=== PATIENT | female | born 2000 | race Two or more races ===

== ENCOUNTER 2025-02-17 19:42 | Observation (INO) | payer MEDICAID, SELFPAY ==
[2025-02-17] VITALS (13 sets, daily range): BP systolic 110–116; BP diastolic 58–76; PULSE 73–90; RESP 18–99; TEMP 36.8; O2SAT 92–100; BMI 39.9
[2025-02-17] MEDS: RINGERS LACTATED 1000 ML 1,000 ML 999 ML IV (19:30)
[2025-02-17 20:13] LABS: Basophils # (Auto) 0.1 Thou/mm3 (0.0-0.2); Basophils % (Auto) 0 % (0-2.5); Eosinophils # (Auto) 0.1 Thou/mm3 (0.0-0.5); Eosinophils % (Auto) 1 % (0-10); Hematocrit 39.1 % (36.0-46.0); Hemoglobin 13.3 g/dL (12.0-16.0); Immature Granulocytes Auto 0.15 Thou/mm3 (0.00-0.00); Lymphocytes # (Auto) 2.0 Thou/mm3 (1.0-4.8); Lymphocytes % (Auto) 16 % (10-50); Mean Corpuscular HGB Conc 34.0 g/dl (31.0-37.0); Mean Corpuscular Hemoglobin 31.0 pg (25.0-35.0); Mean Corpuscular Volume 91 fL (80-100); Monocytes # (Auto) 0.8 Thou/mm3 (0.0-0.8); Monocytes % (Auto) 7 % (0-12); Neutrophils # (Auto) 9.1 Thou/mm3 (1.8-7.7); Neutrophils % (Auto) 75 % (37-80); Nucleated Red Blood Cell # 0.00 Thou/mm3 (0.00-0.00); Nucleated Red Blood Cell % 0 /100 WBC (0); Platelet Count 248 Thou/mm3 (140-440); RDW Standard Deviation 44.3 fL (36.4-46.3); Red Blood Count 4.29 Miln/mm3 (4.00-5.20); White Blood Count 12.2 Thou/mm3 (3.6-11.0)
[2025-02-17] MEDS: RINGERS LACTATED 1000 ML 1,000 ML 125 ML IV (20:30)
[2025-02-17 20:36] LABS: Alanine Aminotransferase 17 U/L (10-49); Albumin, Serum 4.1 gm/dL (3.5-5.0); Albumin/Globulin Ratio 1.6 (1.2-2.2); Alkaline Phosphatase 87 U/L (46-116); Anion Gap 9 (7-16); Aspartate Amino Transferase 30 U/L (0-34); BUN/Creatinine Ratio 12 Ratio (12-20); Bilirubin,Total 0.3 mg/dL (0.3-1.2); Blood Urea Nitrogen 6 mg/dL (9-23); Calcium 10.0 mg/dL (8.3-10.6); Calcium (Corrected) 10.0 mg/dL (8.5-10.1); Carbon Dioxide 25.7 mMol/L (20.0-31.0); Chloride 104 mMol/L (98-107); Creatinine (Component) 0.5 mg/dL (0.6-1.3); Estimated Creatinine Clearance 209.3 mL/min (>60); Globulin 2.6 gm/dL (2.3-3.5); Glucose 82 mg/dL (74-106); Osmolality,Calculated 274 (275-295); Potassium 4.7 mMol/L (3.4-5.1); Sodium 139 mMol/L (136-145); Total Protein 6.7 gm/dL (5.7-8.2); eGFR > 60 See Note
== END 2025-02-17 20:57 | disposition home or self-care (01) ==
PROVIDERS: Admitting Provider Obstetrics & Gynecology; Visit Provider Obstetrics & Gynecology
DX: O26.893 Other specified pregnancy related conditions, third trimester (principal); Z3A.29 29 weeks gestation of pregnancy; R42 Dizziness and giddiness
CPT/HCPCS: 36415; 59025; 59899; 80053; 85025; J7120

== ENCOUNTER 2025-03-12 14:04 | Observation (INO) | payer MEDICAID, SELFPAY ==
[2025-03-12] VITALS (25 sets, daily range): BP systolic 119–130; BP diastolic 71–79; PULSE 83–129; RESP 18–97; TEMP 36.7; O2SAT 95–99; BMI 40.4
--- NOTE | 2025-03-12 14:36 | XR_ITS ---
Examination: age Limited TECHNIQUE: Limited transabdominal sonographic images pelvis Date and time: March 12, 2025, 1510 hours INDICATIONS: Labor evaluation today, dizziness FINDINGS: Cardiac motion 141 BPM Amniotic fluid index 16.8 cm IMPRESSION: Amniotic fluid index 16.8 cm
--- NOTE | 2025-03-12 14:36 | XR_ITS ---
Examination: OB Transvaginal ultrasound of the pelvis, Limited Technique: Transvaginal sonographic images pelvis performed using spencer scale imaging Exam date and time: March 12, 2025, 1512 hours INDICATIONS: Labor evaluation with dizziness today. FINDINGS: Cervix 3.1 cm closed IMPRESSION: Cervix 3.1 cm closed.
[2025-03-12 15:35] LABS: Collection Type, Urine Clean Catch
[2025-03-12 15:47] LABS: Bilirubin,Urine Negative (Negative); Blood,Urine Negative (Negative); Clarity,Urine Clear (Clear/Hazy); Color,Urine Yellow (Lt Yel-Yel); Glucose, Urine Negative (Negative); Ketones,Urine Negative (Negative); Leukocyte Esterase,Urine Negative (Negative); Nitrite,Urine Negative (Negative); PH,Urine 6.0 (5.0-7.0); Protein,Urine Trace (Neg - Trace); RBC,Urine 2 /hpf (0-3); Specific Gravity,Urine 1.028 (1.001-1.035); Squamous Epithelial Cell,Urine 4 /hpf (0-5); Urobilinogen,Urine Negative mg/dL (0.0-1.0); WBC,Urine 2 /hpf (0-5)
[2025-03-12 16:46] LABS: COVID-19 Antigen (In-House) Positive (Negative)
--- NOTE | 2025-03-12 17:20 | PD.LDPN ---
Documentation for date of: 03/12/25 OB Labor Progress Note Pelvic Exam Amniotic membrane status: Intact Contractions Monitor mode: External Contraction frequency: none Status status: Category l Assessment and Plan Comments: Triage Note Sil is a 24yo with SIUP at 32+wk presenting to L&D for a few different complaints. She notes an episode of dizziness this afternoon that resolved before she arrived. She has had runny nose for a few days- no cough or sore throat. No fevers/chills. She also noticed a change in discharge, was a bit more liquidy a few days ago but more mucous-like now. No itching or discomfort. No burning with urination. She notes no painful/regular ctx, no vaginal bleeding, no loss of fluid. Normal movement. PMhx/PNC significant for: -Hx of section x1 -BMI 40.4 ROS negative other than what was described above. Vitals wnl, afebrile General: well developed, well nourished, no acute distress, conversant Cardiac: normal heart rate Lungs: breathing without distress Abdomen: soft, gravid, non-tender, no rebound or guarding Extremities: no edema of BLE NST: Reactive, +accels, no decels, mod jamie [place]: no regular ctx pattern Labs: Covid swab positive UA benign, spec grav 1.028 Radiology: -Cervical length 3.1cm -SARI 16.8cm Assessment: Sil is a 24yo with SIUP at 32+wk with confirmatory testing positive for Covid. Initially she had mild tachycardia, but resolved with oral hydration. No evidence of PTL. Cervical length 3.1cm. FHRT is Cat I. Vitals wnl, benign exam. Plan: -Discussed diagnosis and recommendations for good hydration and rest at home, masking when out of the home. -Rx Paxlovid x 5 days -Tylenol 1000mg PO Q6hr prn pain or fever -Follow up at routine OB visit as scheduled -Discussed return precautions. Jeimy Olivia MD
== END 2025-03-12 17:30 | disposition home or self-care (01) ==
PROVIDERS: Admitting Provider Obstetrics & Gynecology; Visit Provider Obstetrics & Gynecology
DX: O98.513 Other viral diseases complicating pregnancy, third trimester (principal); U07.1 COVID-19; Z3A.32 32 weeks gestation of pregnancy
CPT/HCPCS: 59025; 59899; 76815; 76817; 81001; 87811

== ENCOUNTER 2025-03-21 23:56 | Observation (INO) | payer MEDICAID, SELFPAY ==
[2025-03-22] VITALS (25 sets, daily range): BP systolic 116–126; BP diastolic 72–75; PULSE 73–96; RESP 16–99; TEMP 36.6; O2SAT 96–99; BMI 39.7
[2025-03-22 00:29] LABS: ROM Kit Exp Date# 01/18/28; ROM Kit Lot # 58104371; ROM Swab Mixed By: PC; Rupture of Fetal Membranes Negative (Negative); Swb Mxed in Solvent 1 min? Yes
[2025-03-22 00:59] LABS: Collection Type, Urine Clean Catch
[2025-03-22] MEDS: RINGERS LACTATED 1000 ML 1,000 ML 999 ML IV (01:00)
[2025-03-22 01:45] LABS: Bacteria,Urine 1+; RBC,Urine 1 /hpf (0-3); Squamous Epithelial Cell,Urine 5 /hpf (0-5); WBC,Urine 3 /hpf (0-5)
[2025-03-22 01:58] LABS: Bilirubin,Urine Negative (Negative); Blood,Urine Negative (Negative); Clarity,Urine Clear (Clear/Hazy); Color,Urine Yellow (Lt Yel-Yel); Glucose, Urine Negative (Negative); Ketones,Urine Negative (Negative); Leukocyte Esterase,Urine Negative (Negative); Nitrite,Urine Negative (Negative); PH,Urine 6.0 (5.0-7.0); Protein,Urine Negative (Neg - Trace); Specific Gravity,Urine 1.026 (1.001-1.035); Urobilinogen,Urine Negative mg/dL (0.0-1.0)
== END 2025-03-22 02:20 | disposition home or self-care (01) ==
PROVIDERS: Admitting Provider Obstetrics & Gynecology; Visit Provider Obstetrics & Gynecology
DX: O26.893 Other specified pregnancy related conditions, third trimester (principal); Z3A.33 33 weeks gestation of pregnancy; R10.9 Unspecified abdominal pain; M54.9 Dorsalgia, unspecified
CPT/HCPCS: 59025; 59899; 81001; 84112; J7120

== ENCOUNTER 2025-04-06 19:47 | Observation (INO) | payer MEDICAID, SELFPAY ==
[2025-04-06] VITALS (36 sets, daily range): BP systolic 126–138; BP diastolic 75–90; PULSE 72–88; RESP 18–97; TEMP 36.6; O2SAT 94–100; BMI 41.8
[2025-04-06 20:48] LABS: ROM Kit Exp Date# 1/18/28; ROM Kit Lot # 58104371
[2025-04-06 20:49] LABS: ROM Swab Mixed By: DC; Rupture of Fetal Membranes Negative (Negative); Swb Mxed in Solvent 1 min? Yes
[2025-04-06] MEDS: ACETAMINOPHEN 500 MG TABLET 1000 MG PO (21:24)
[2025-04-06 21:42] LABS: Collection Type, Urine Clean Catch
[2025-04-06 21:43] LABS: Basophils # (Auto) 0.0 Thou/mm3 (0.0-0.2); Basophils % (Auto) 0 % (0-2.5); Eosinophils # (Auto) 0.1 Thou/mm3 (0.0-0.5); Eosinophils % (Auto) 1 % (0-10); Hematocrit 37.1 % (36.0-46.0); Hemoglobin 13.0 g/dL (12.0-16.0); Immature Granulocytes Auto 0.08 Thou/mm3 (0.00-0.00); Lymphocytes # (Auto) 1.8 Thou/mm3 (1.0-4.8); Lymphocytes % (Auto) 16 % (10-50); Mean Corpuscular HGB Conc 35.0 g/dl (31.0-37.0); Mean Corpuscular Hemoglobin 31.3 pg (25.0-35.0); Mean Corpuscular Volume 89 fL (80-100); Monocytes # (Auto) 0.7 Thou/mm3 (0.0-0.8); Monocytes % (Auto) 6 % (0-12); Neutrophils # (Auto) 9.0 Thou/mm3 (1.8-7.7); Neutrophils % (Auto) 77 % (37-80); Nucleated Red Blood Cell # 0.00 Thou/mm3 (0.00-0.00); Nucleated Red Blood Cell % 0 /100 WBC (0); Platelet Count 220 Thou/mm3 (140-440); RDW Standard Deviation 45.0 fL (36.4-46.3); Red Blood Count 4.15 Miln/mm3 (4.00-5.20); White Blood Count 11.7 Thou/mm3 (3.6-11.0)
[2025-04-06 22:03] LABS: Alanine Aminotransferase 20 U/L (10-49); Albumin, Serum 3.7 gm/dL (3.5-5.0); Albumin/Globulin Ratio 1.6 (1.2-2.2); Alkaline Phosphatase 134 U/L (46-116); Anion Gap 7 (7-16); Aspartate Amino Transferase 15 U/L (0-34); BUN/Creatinine Ratio 10 Ratio (12-20); Bilirubin,Total 0.4 mg/dL (0.3-1.2); Blood Urea Nitrogen < 5 mg/dL (9-23); Calcium 9.3 mg/dL (8.3-10.6); Calcium (Corrected) 9.5 mg/dL (8.5-10.1); Carbon Dioxide 26.2 mMol/L (20.0-31.0); Chloride 105 mMol/L (98-107); Creatinine (Component) 0.5 mg/dL (0.6-1.3); Estimated Creatinine Clearance 207.5 mL/min (>60); Globulin 2.3 gm/dL (2.3-3.5); Glucose 80 mg/dL (74-106); LDH (Lactate Dehydrogenase) 144 U/L (120-246); Osmolality,Calculated 271 (275-295); Potassium 4.1 mMol/L (3.4-5.1); Sodium 138 mMol/L (136-145); Total Protein 6.0 gm/dL (5.7-8.2); Uric Acid 3.7 mg/dL (3.1-7.8); eGFR > 60 See Note
[2025-04-06 22:06] LABS: Bacteria,Urine Rare; Bilirubin,Urine Negative (Negative); Blood,Urine Negative (Negative); Clarity,Urine Clear (Clear/Hazy); Color,Urine Lt-Yellow (Lt Yel-Yel); Glucose, Urine Negative (Negative); Ketones,Urine Negative (Negative); Leukocyte Esterase,Urine Negative (Negative); Nitrite,Urine Negative (Negative); PH,Urine 6.5 (5.0-7.0); Protein,Urine Negative (Neg - Trace); RBC,Urine 5 /hpf (0-3); Specific Gravity,Urine 1.007 (1.001-1.035); Squamous Epithelial Cell,Urine 1 /hpf (0-5); Urobilinogen,Urine Negative mg/dL (0.0-1.0); WBC,Urine 2 /hpf (0-5)
[2025-04-06 22:23] LABS: Fibrinogen 518 mg/dL (175-375); INR 0.9 (0.9-1.3); Partial Thromboplastin Time 24.2 Seconds (22.0-36.0); Prothrombin Time 9.8 Seconds (9.0-12.2)
== END 2025-04-07 | disposition home or self-care (01) ==
PROVIDERS: Admitting Provider Obstetrics & Gynecology; Visit Provider Obstetrics & Gynecology
DX: O99.891 Other specified diseases and conditions complicating pregnancy (principal); N89.8 Other specified noninflammatory disorders of vagina; Z3A.35 35 weeks gestation of pregnancy; O26.893 Other specified pregnancy related conditions, third trimester; R42 Dizziness and giddiness; R51.9 Headache, unspecified
CPT/HCPCS: 36415; 59025; 59899; 80053; 81001; 83615; 84112; 84550; 85025; 85384; 85610; 85730; A9270